=== PATIENT | female | born 1985 | race Caucasian/White ===

== ENCOUNTER 2019-05-05 12:29 | Emergency (ER) | payer SELFPAY ==
[~2019-05-05] VITALS: Ht 162.6 cm; Wt 65.5 kg
[2019-05-05 12:31] VITALS: BP 142/82
--- NOTE | 2019-05-05 12:53 | NUR ---
PT STATES SHE BEGAN TO HAVE SOME BLURRED VISION AND MILD PRESSURE IN R EYE, PT THEN NOTICED HER R PUPIL WAS DILATED MUCH MORE THEN HER LEFT. THIS BEGAN APPOXIMATELY 1030. PT DENIES TRAUMA, N/V, DIZZINESS, PAIN, TALAMANTES. ER PROVIDER IN TO SEE PT
[2019-05-05] MEDS ORDERED: PROPARACAINE OPHTH 0.5%, 15ML ONE (12:57)
[2019-05-05] MEDS ORDERED: FLUORESCEIN OPHTHALMIC 1 MG STRIP ONE (13:01)
--- NOTE | 2019-05-05 13:45 | NUR ---
BREAK RN: PT AMBULATORY TO IMAGING WITH SELLING MANAGER
--- NOTE | 2019-05-05 13:56 | NUR ---
BREAK RN: PT BACK FROM IMAGING.
--- NOTE | 2019-05-05 14:29 | NUR ---
Patient/Caregiver given discharge instructions and they have confirmed that they understand the instructions. Patient ambulatory with steady gait. PT LEFT WITH ALL PERSONAL BELONGINGS.
== END 2019-05-05 14:41 | disposition home or self-care (01) ==
LOC: ED 14:00
DX: H57.04 Mydriasis (principal); R51 Headache
CPT/HCPCS: 70450; 99284

== ENCOUNTER 2020-07-18 22:47 | Inpatient (IN) | payer BC, OTHER ==
[~2020-07-18] VITALS: Ht 162.6 cm; Wt 82.0 kg
[2020-07-18 23:15] VITALS: BP 130/79
[2020-07-19] MEDS ORDERED: D5%-LACTATED RINGERS 1,000 ML IV SCH (05:08)
[2020-07-19] MEDS ORDERED: OXYTOCIN 30U/ 0.9% NaCL 500ML 500 ML IV ONE (05:08)
[2020-07-19] MEDS ORDERED: NEWBORN KIT ONE (05:08)
[2020-07-19] MEDS ORDERED: OXYTOCIN 30U/ 0.9% NaCL 500ML 500 ML IV PRN (05:08)
[2020-07-19] MEDS ORDERED: LACTATED RINGERS 1,000 ML IV SCH ×2 (05:08→06:08)
[2020-07-19] MEDS ORDERED: CALCIUM CARBONATE 500 MG TAB.CHEW PO PRN (05:30)
[2020-07-19] MEDS ORDERED: ONDANSETRON 2MG/ML, 2ML IVPush PRN (05:30)
[2020-07-19] MEDS ORDERED: FENTANYL PF 100 MCG/2ML IV PRN (05:30)
[2020-07-19] MEDS ORDERED: TERBUTALINE 1 MG/ML, 1ML IVPush PRN (05:30)
[2020-07-19] MEDS ORDERED: TERBUTALINE 1 MG/ML, 1ML SQ PRN (05:30)
[2020-07-19] MEDS ORDERED: FENTANYL PF 100 MCG/2ML IVPush PRN (05:30)
[2020-07-19 05:37] LABS: MEAN CORPUSCULAR HEMOGLOBIN 29.1 pg (27.0-34.8); MEAN CORPUSCULAR HGB CONC 33.2 g/dL (32.4-35.8); MEAN PLATELET VOLUME 9.4 fL (7.4-10.4); PLATELET COUNT 166 x10^3/uL (130-400); RED BLOOD COUNT 4.04 x10^6/uL (3.82-5.3); RED CELL DISTRIBUTION WIDTH 13.9 % (9.6-15.2)
[2020-07-19] MEDS ORDERED: BUPIVACAINE 0.25% ONE (05:42)
[2020-07-19] MEDS ORDERED: FENTANYL/BUPIV./NS/PF 250 ML EPIDCONT ONE (05:43)
[2020-07-19 05:58] LABS: BASOPHILS # (AUTO) 0.09 x10^3/uL (0-0.1); BASOPHILS % (AUTO) 1 % (0-1); EOSINOPHILS # (AUTO) 0.04 x10^3/uL (0-0.4); EOSINOPHILS % (AUTO) 0 % (1-7); LYMPHOCYTES # (AUTO) 1.68 x10^3/uL (1-3.4); LYMPHOCYTES % (AUTO) 11 % (22-44); MD SCAN; MONOCYTES # (AUTO) 1.09 x10^3/uL (0.2-0.8); MONOCYTES % (AUTO) 7 % (2-9); NEUTROPHILS % (AUTO) 82 % (42-75)
[2020-07-19] MEDS ORDERED: FENTANYL/BUPIV./NS/PF 250 ML EPIDCONT SCH (06:08)
[2020-07-19] MEDS ORDERED: LACTATED RINGERS 1,000 ML IVBOLUS PRN (06:30)
[2020-07-19] MEDS ORDERED: EPHEDRINE 50 MG/ML, 1ML IVPush PRN (06:30)
[2020-07-19] MEDS ORDERED: OXYTOCIN 30U/ 0.9% NaCL 500ML 500 ML ONE ×2 (06:33→14:00)
[2020-07-19] MEDS ORDERED: LIDOCAINE 1%, 20ML ONE (10:35)
[2020-07-19] MEDS ORDERED: MISOPROSTOL 200 MCG TABLET ONE (10:35)
[2020-07-19] MEDS ORDERED: METHYLERGONOVINE 0.2 MG/ML IM PRN (13:30)
[2020-07-19] MEDS ORDERED: MISOPROSTOL 200 MCG TABLET PR PRN (13:30)
[2020-07-19] MEDS ORDERED: ACETAMINOPHEN 325 MG TABLET PO PRN (13:30)
[2020-07-19] MEDS ORDERED: ONDANSETRON 2MG/ML, 2ML IV PRN (13:30)
[2020-07-19] MEDS ORDERED: HYDROcodone/APAP 5/325 TABLET PO PRN ×2 (13:30)
[2020-07-19] MEDS ORDERED: SIMETHICONE 80 MG CHEW TAB PO PRN (13:30)
[2020-07-19] MEDS ORDERED: CARBOPROST TROMETHAMINE 250 MCG/ML, 1ML IM PRN (13:30)
[2020-07-19] MEDS ORDERED: IBUPROFEN 600 MG TABLET ONE (14:00)
[2020-07-19] MEDS: OXYTOCIN 30U/ 0.9% NaCL 500ML 500 ML IV SCH ×2 (14:02→23:17)
[2020-07-19] MEDS: IBUPROFEN 600 MG TABLET PO PRN ×2 (14:03→21:58)
[2020-07-19 15:20] VITALS: BP 104/65
[2020-07-19 19:20] VITALS: BP 110/74
[2020-07-19 21:26] LABS: MEAN CORPUSCULAR HEMOGLOBIN 29.3 pg (27.0-34.8); MEAN CORPUSCULAR HGB CONC 33.6 g/dL (32.4-35.8); MEAN PLATELET VOLUME 9.9 fL (7.4-10.4); PLATELET COUNT 163 x10^3/uL (130-400); RED BLOOD COUNT 3.64 x10^6/uL (3.82-5.3); RED CELL DISTRIBUTION WIDTH 13.8 % (9.6-15.2)
[2020-07-19 21:43] LABS: BASOPHILS # (AUTO) 0.06 x10^3/uL (0-0.1); BASOPHILS % (AUTO) 0 % (0-1); EOSINOPHILS # (AUTO) 0.03 x10^3/uL (0-0.4); EOSINOPHILS % (AUTO) 0 % (1-7); LYMPHOCYTES # (AUTO) 1.71 x10^3/uL (1-3.4); LYMPHOCYTES % (AUTO) 8 % (22-44); MD SCAN; MONOCYTES # (AUTO) 1.41 x10^3/uL (0.2-0.8); MONOCYTES % (AUTO) 7 % (2-9); NEUTROPHILS # (AUTO) 17.49 x10^3/uL (1.8-6.8); NEUTROPHILS % (AUTO) 85 % (42-75)
[2020-07-19] MEDS: DOCUSATE 100 MG CAPSULE PO PRN (21:58)
[2020-07-20 00:15] VITALS: BP 117/71
[2020-07-20] MEDS: IBUPROFEN 600 MG TABLET PO PRN (03:53)
[2020-07-20 03:56] VITALS: BP 123/76
[2020-07-20] MEDS: DOCUSATE 100 MG CAPSULE PO PRN (07:59)
[2020-07-20 08:00] VITALS: BP 110/71
[2020-07-20] MEDS ORDERED: PRENATAL VIT/IRON/FA 1 EACH TABLET PO SCH (09:00)
== END 2020-07-20 14:10 | disposition home or self-care (01) | DRG 807 ==
LOC: LDOP 22:47 → OBSVTOIN 07-19 01:41 → LDIP 07-19 01:41 → INTOOBSV 07-19 01:41 → 2NW 07-19 15:30
PROVIDERS: ADMIT Obstetrics & Gynecology; ATTEND Obstetrics & Gynecology
PROC: 0KQM0ZZ Repair Perineum Muscle, Open Approach (ICD-10-PCS; principal; 2020-07-19)
PROC: 10E0XZZ Delivery of Products of Conception, External Approach (ICD-10-PCS; 2020-07-19)
PROC: 3E0R3BZ Introduction of Anesthetic Agent into Spinal Canal, Percutaneous Approach (ICD-10-PCS; 2020-07-19)
PROC: 00HU33Z Insertion of Infusion Device into Spinal Canal, Percutaneous Approach (ICD-10-PCS; 2020-07-19)
DX: O32.6XX0 Maternal care for compound presentation, not applicable or unspecified (principal); Z37.0 Single live birth; O48.0 Post-term pregnancy; O69.81X0 Labor and delivery complicated by cord around neck, without compression, not applicable or unspecified; Z3A.41 41 weeks gestation of pregnancy; O70.1 Second degree perineal laceration during delivery; Z20.828 Contact with and (suspected) exposure to other viral communicable diseases
CPT/HCPCS: 36415; 85025; 86592; 86850; 86900; 87635; G0378; J3490; J2590; J3010; J7120